=== PATIENT | female | born 2000 | race Hispanic/Latino ===

== ENCOUNTER 2020-09-12 21:08 | Emergency (ER) | payer OTHER ==
[~2020-09-12] VITALS: Ht 152.4 cm; Wt 76.0 kg
[2020-09-12] MEDS ORDERED: BCP PO (21:17)
[2020-09-12] MEDS ORDERED: NS 1,000 ML IV ONE (21:50)
[2020-09-12] MEDS ORDERED: ACETAMINOPHEN 325 MG TAB PO ONE (21:50)
[2020-09-12 22:26] LABS: BASO % 0.2 % (0.0-1.0); HEMATOCRIT 36.9 % (36.0-47.0); HEMOGLOBIN 12.7 g/dl (12.0-15.5); LYMPH # 1.1 10^3/uL (1.5-5.0); LYMPH % 6.2 % (24.0-44.0); MEAN CORPUSCULAR HEMOGLOBIN 30.4 pg (27.0-33.0); MEAN CORPUSCULAR HGB CONC 34.4 g/dl (32.0-36.5); MEAN CORPUSCULAR VOLUME 88.3 fl (80.0-96.0); MONO # 1.4 10^3/uL (0.0-0.8); PLATELET COUNT, AUTOMATED 305 10^3/uL (150-450); RED BLOOD COUNT 4.18 10^6/uL (4.00-5.40); WHITE BLOOD COUNT 17.6 10^3/uL (4.0-10.0)
[2020-09-12 22:29] LABS: RSV AMPLIFICATION NEGATIVE (NEGATIVE)
[2020-09-12 23:00] LABS: BLOOD UREA NITROGEN 8 MG/DL (7-18); CALCIUM LEVEL 8.9 MG/DL (8.5-10.1); CARBON DIOXIDE LEVEL 28 MEQ/L (21-32); CHLORIDE LEVEL 101 MEQ/L (98-107); CREATININE FOR GFR 0.82 MG/DL (0.55-1.30); GLOMERULAR FILTRATION RATE > 60.0 (>60); GLUCOSE, FASTING 108 MG/DL (70-100); POTASSIUM SERUM 3.9 MEQ/L (3.5-5.1); SODIUM LEVEL 135 MEQ/L (136-145)
[2020-09-13 00:30] VITALS: BP 130/65
--- NOTE | 2020-09-14 07:27 | ECGEPIP ---
[facility] - ED Test Date: 2020-09-12 Pat Name: REYNOLD ASH Department: Room: - Gender: Female Guide Visitor: taylor : 2000 Requested By: JOVITA Tobar Order Number: [id number] Reading MD: James Coon Measurements Intervals [place] Rate: 121 P: 26 NH: 158 QRS: 46 QRSD: 80 T: 20 QT: 318 QTc: 451 Interpretive Statements Sinus tachycardia POOR R WAVE PROGRESSION NONSPECIFIC T WAVE ABNORMALITY(S) NO PRIORS FOR COMPARISON Electronically Signed on 09-14-2020 7:27:35 EDT by James Coon
== END 2020-09-13 00:36 | disposition home or self-care (01) ==
LOC: M ED 21:08
DX: B34.9 Viral infection, unspecified (principal); Z79.3 Long term (current) use of hormonal contraceptives